=== PATIENT | male | born 1995 | race Caucasian/White ===

== ENCOUNTER 2023-01-23 03:35 | Emergency (ER) | payer SELFPAY ==
[~2023-01-23] VITALS: Ht 170.2 cm; Wt 54.4 kg
[2023-01-23 03:45] VITALS: BP 127/90; PULSE 80; RESP 16; TEMP 97.7; O2SAT 98
--- NOTE | 2023-01-23 03:45 | NUR ---
TO BED AMBULATORY
--- NOTE | 2023-01-23 04:00 | NUR ---
27 yo M, c/o penile discharge x two days. Denies fever, chills, nausea or vomiting. Pain is described as dull/intermittent 4/10 suprapubic non-radiating pain. PMH: chlamydia
--- NOTE | 2023-01-23 04:43 | NUR ---
MD Rincon at bedside examining pt.
[2023-01-23] MEDS ORDERED: cefTRIAXone 500 MG in LIDOCAINE MPF 1% 1 ML IM ONE (04:45)
[2023-01-23] MEDS ORDERED: LIDOCAINE MPF 1% 5 ML ONE (04:46)
[2023-01-23] MEDS ORDERED: cefTRIAXone 500 MG VIAL ONE (04:46)
[2023-01-23] MEDS ORDERED: DOXY-487 PO (05:10)
[2023-01-23] MEDS ORDERED: IBUP-2213 PO (05:10)
--- NOTE | 2023-01-23 05:19 | NUR ---
Patient discharged with v/s stable. Written and verbal after care instructions given and explained. Patient alert, oriented and verbalized understanding of instructions. Ambulatory with steady gait. All questions addressed prior to discharge. ID band removed. Patient advised to follow up with PMD. Rx of Doxycycline and Ibuprofen sent to preferred pharmacy. Patient educated on indication of medication including possible reaction and side effects. Opportunity to ask questions provided and answered.
[2023-01-23 05:20] VITALS: BP 123/79; PULSE 88; RESP 16; TEMP 97.7; O2SAT 98
== END 2023-01-23 05:15 | disposition home or self-care (01) ==
LOC: MED 03:35
DX: N48.89 Other specified disorders of penis (principal); R10.30 Lower abdominal pain, unspecified; F15.90 Other stimulant use, unspecified, uncomplicated; F17.200 Nicotine dependence, unspecified, uncomplicated
CPT/HCPCS: 81002; 96372; 99283; J0696; J2001